=== PATIENT | female | born 1980 | race American Indian/Alaskan Native ===

== ENCOUNTER 2020-01-08 13:49 | Emergency (ER) | payer OTHER ==
[2020-01-08 13:53] VITALS: BP 124/57
--- NOTE | 2020-01-08 13:57 | Event Note ---
ED Screening Note ED Screening Note: TWISTED R ANKLE THIS AM SWELLING LATERAL This initial assessment/diagnostic orders/clinical plan/treatment(s) is/are subject to change based on patients health status, clinical progression and re- assessment by fellow clinical providers in the ED. Further treatment and workup at subsequent clinical providers discretion. Patient/guardian urged not to elope from the ED as their condition may be serious if not clinically assessed and managed. Initial orders include: RO FX
--- NOTE | 2020-01-08 14:33 | XRay Report ---
XR ankle 2V RT INDICATION / CLINICAL INFORMATION: PAIN SP FALL. COMPARISON: None available. FINDINGS: BONES/JOINT(S): There is a mildly displaced fracture in the base of the fifth metatarsal. There is no other acute fracture. No significant degenerative changes. SOFT TISSUES: No significant abnormality. ADDITIONAL FINDINGS: None. Signer Name: Johnathan Gupta MD Signed: 01/08/2020 2:29 PM Workstation Name: [id number]
[2020-01-08] MEDS ORDERED: IBUPROFEN 800 MG TAB PO ONE (14:38)
--- NOTE | 2020-01-08 16:08 | Emergency Department Report ---
ED Extremity Problem HPI - General Chief complaint: Extremity Injury, Lower Stated complaint: RT SWOLLEN ANKLE PAIN Time Seen by Provider: 01/08/20 13:55 Source: patient Mode of arrival: Wheelchair Limitations: No Limitations - History of Present Illness Initial comments: This pleasant 39-year-old female presents the emergency department the chief complaint of right foot pain. Patient reports last night she was taking out the trash when she inverted her right foot and ankle and has been having pain on the lateral side of her foot since. She reports the pain is a 9 out of 10 aggravated with any palpation or movement. States the pain is severe when she tries to bear weight. She denies any known past medical history, current medication use and denies any allergies to medications but does have food allergies including banana blueberry care and watermelon. She denies any associated fever, chills, night sweats, headache, dizziness, blurry vision, nausea, vomiting, diarrhea, chest pain, shortness of breath. Severity scale (0 -10): 8 - Related Data Previous Rx's Medication Instructions Recorded Last Taken Type Ibuprofen [Motrin 800 MG tab] 800 mg PO Q8HR PRN #30 tablet 01/08/20 Unknown Rx Allergies Allergy/AdvReac Type Severity Reaction Status Date / Time banana Allergy Anaphylaxis Verified 01/08/20 13:52 blueberry Allergy Anaphylaxis Verified 01/08/20 13:52 carrot Allergy Anaphylaxis Verified 01/08/20 13:52 watermelon Allergy Anaphylaxis Verified 01/08/20 13:52 ED Review of Systems ROS: Stated complaint: RT SWOLLEN ANKLE PAIN Other details as noted in HPI Comment: All other systems reviewed and negative Constitutional: denies: chills, fever Eyes: denies: eye pain, eye discharge, vision change ENT: denies: ear pain, throat pain Respiratory: denies: cough, shortness of breath, wheezing Cardiovascular: denies: chest pain, palpitations Endocrine: no symptoms reported Gastrointestinal: denies: abdominal pain, nausea, diarrhea Genitourinary: denies: urgency, dysuria, discharge Musculoskeletal: as per HPI, arthralgia. denies: back pain, joint swelling Skin: denies: rash, lesions Neurological: denies: headache, weakness, paresthesias Psychiatric: denies: anxiety, depression Hematological/Lymphatic: denies: easy bleeding, easy bruising ED Past Medical Hx - Past Medical History Previous Medical History?: No - Surgical History Past Surgical History?: Yes Additional Surgical History: - Social History Smoking Status: Never Smoker Substance Use Type: None - Medications Home Medications: Home Medications Medication Instructions Recorded Confirmed Last Taken Type Ibuprofen [Motrin 800 MG tab] 800 mg PO Q8HR PRN #30 tablet 01/08/20 Unknown Rx ED Physical Exam - General Limitations: No Limitations General appearance: alert, in no apparent distress - Head Head exam: Present: atraumatic, normocephalic - Eye Eye exam: Present: normal appearance, PERRL, EOMI Pupils: Present: normal accommodation - ENT ENT exam: Present: normal exam, normal orophraynx, mucous membranes moist - Neck Neck exam: Present: normal inspection, full ROM, lymphadenopathy. Absent: tenderness, meningismus - Respiratory Respiratory exam: Present: normal lung sounds bilaterally. Absent: respiratory distress, wheezes, rales, rhonchi, stridor - Cardiovascular Cardiovascular Exam: Present: regular rate, normal rhythm, normal heart sounds. Absent: systolic murmur, diastolic murmur, rubs, gallop - GI/Abdominal GI/Abdominal exam: Present: soft, normal bowel sounds - Extremities Exam Extremities exam: Present: normal inspection, full ROM, tenderness (Tenderness to palpation with ecchymosis of the right lateral foot at the base of the fifth metatarsal.), normal capillary refill. Absent: calf tenderness - Back Exam Back exam: Present: normal inspection - Neurological Exam Neurological exam: Present: alert, oriented X3 - Psychiatric Psychiatric exam: Present: normal affect, normal mood - Skin Skin exam: Present: warm, dry, intact, normal color. Absent: rash ED Course Vital Signs 01/08/20 13:53 Temperature 98.8 F Pulse Rate 86 Respiratory 16 Rate Blood Pressure 124/57 O2 Sat by Pulse 99 Oximetry ED Medical Decision Making - Radiology Data Radiology results: report reviewed, image reviewed X-ray shows a mildly displaced fifth metacarpal fracture read by radiology - Medical Decision Making X-ray confirmed 1/5 metacarpal fracture consistent with a Frye fracture. Placed and was placed in a Ortho boot splint. This was applied by the RN and was appropriately applied and the neurovascular exam was intact post application. Patient will be given crutches and outpatient follow-up with orthopedics. Offered stronger pain medication however she declined and only requested ibuprofen 800 mg. Recommended strict elevation return the emerge department any change or worsening symptoms. She verbalized understanding the diagnosis, treatment plan and follow-up instructions all of her questions were answered. - Differential Diagnosis Fracture, strain, sprain Critical care attestation.: If time is entered above; I have spent that time in minutes in the direct care of this critically ill patient, excluding procedure time. ED Disposition Clinical Impression: Fracture of fifth metatarsal bone Qualifiers: Encounter type: initial encounter Fracture type: closed Fracture alignment: displaced Laterality: right Qualified Code(s): S92.351A - Displaced fracture of fifth metatarsal bone, right foot, initial encounter for closed fracture Disposition: TO HOME OR SELFCARE Is pt being admited?: No Condition: Stable Instructions: Foot Fracture in Adults (ED) Prescriptions: Ibuprofen [Motrin 800 MG tab] 800 mg PO Q8HR PRN #30 tablet PRN Reason: Pain , Severe (7-10) Referrals: LEX SOOD MD [Staff Physician] - 3-5 Days TIRSO CHEN DPM [Staff Physician] - 3-5 Days Forms: Work/School Release Form(ED) Time of Disposition: 16:08
== END 2020-01-08 16:11 | disposition home or self-care (01) ==
LOC: ED 13:49
DX: S92.351A Displaced fracture of fifth metatarsal bone, right foot, initial encounter for closed fracture (principal); Z98.890 Other specified postprocedural states; Z79.1 Long term (current) use of non-steroidal anti-inflammatories (NSAID); Z91.018 Allergy to other foods; X58.XXXA Exposure to other specified factors, initial encounter; Y93.89 Activity, other specified; Y92.89 Other specified places as the place of occurrence of the external cause; Y99.8 Other external cause status
CPT/HCPCS: 99283